=== PATIENT | female | born 1975 | race Caucasian/White ===

== ENCOUNTER 2017-04-26 08:47 | Day surgery (SDC) | payer MEDICAID ==
[2015-04-01 11:10] VITALS: BMI 60.6
--- NOTE | ~2017-04-26 | PRO ---
PATIENT:GISSEL SCHILLING MEDICAL RECORD: [id number] : 79 [facility] ADMISSION DATE: 04/26/17 PROCEDURE PERFORMED BY: JOSE L CHAN DO PROCEDURE DATE: 04/26/17 PROCEDURE: Colonoscopy with biopsies and stool collection. INDICATION FOR PROCEDURE: Diarrhea as well as nausea and vomiting. SCOPE: uSpeak video pediatric colonoscope. MEDICATIONS: Propofol 320 milligrams IV per anesthesia. ESTIMATED BLOOD LOSS: Minimal. COMPLICATIONS: None. FINDINGS: Informed consent was given. The patient was made comfortable with the above medication. After reaching an adequate level of sedation by slow IV push, the patient was placed on her left side. A digital rectal examination was performed and was normal. The endoscope was then advanced under direct visualization through the rectum to the terminal ileum. The scope was slowly withdrawn, and mucosa was carefully examined. The prep quality was poor to fair. Stool was collected during the examination to submit for further studies including culture, fecal leukocytes, ova and parasites, and C-difficile. Random biopsies were taken throughout the colon to rule out microscopic colitis. There were no polyps, diverticula, or signs of colitis visualized throughout the entire colon. Retroflexion was performed in the rectum with the normal view. The endoscope was withdrawn from the patient. The patient tolerated the procedure well, and there were no complications. IMPRESSIONS: 1. Normal colonoscopy to the terminal ileum. 2. Diarrhea and change in bowel habits. PLAN/RECOMMENDATIONS: 1. Discharge home when recovery parameters are met. 2. High fiber diet. 3. Continue current medications. 4. Trial of cholestyramine 4 gm b.i.d. to the bulk stool. 5. Follow-up biopsy specimen results with further recommendations pending findings on biopsies, cultures, and stool studies. JOSE L CHAN DO CC: [id number] DICTATION DATE: 04/26/171940 SUPERVISOR DUMPING: TC 04/26/171939 [facility] 04/26/17 [facility] [address] [place] [address]
[2017-04-26] MEDS ORDERED: BUMEX2 MG PO (10:28)
[2017-04-26] MEDS ORDERED: KLONOPIN1 MG PO (10:29)
[2017-04-26] MEDS ORDERED: REMERON30 MG PO (10:29)
[2017-04-26] MEDS ORDERED: TOPAMAX100 MG PO (10:29)
[2017-04-26] MEDS ORDERED: LEVOXYL100 MCG PO (10:30)
[2017-04-26] MEDS ORDERED: ZOLOFT100 MG PO (10:30)
[2017-04-26] MEDS ORDERED: VITAMIN D5000 UNIT (10:31)
[2017-04-26] MEDS ORDERED: VITAMIN D5000 UNIT PO (10:32)
[2017-04-26] MEDS ORDERED: LANTUS INSULIN10 ML SC (10:33)
[2017-04-26 10:48] LABS: HEMOGLOBIN 13.2 g/dL (12-16); MCH 27.6 pg (26.0-34.0); MCHC 32.2 g/dL (31.0-37.0); MCV 85.8 fL (80.0-100.0); MEAN PLATELET VOLUME 9.7 fL (7.4-10.4); RBC 4.78 10x6/uL (4.00-5.40); RDW 13.9 % (11.5-14.5); WBC 9.4 10x3/uL (4.8-10.8)
[2017-04-26 11:10] LABS: ANION GAP 13.5 mmol/L (8-16); CALCIUM 8.6 mg/dL (8.5-10.1); CARBON DIOXIDE 24.4 mmol/L (21.0-32.0); CREATININE - SERUM 0.9 mg/dL (0.6-1.3); POTASSIUM - SERUM 3.9 mmol/L (3.5-5.1)
--- NOTE | 2017-04-26 14:06 | NUR ---
1240- PT BACK TO ROOM. SITTING UP WITH HOB ELEVATED. VSS. AT BEDSIDE. DR. CHAN SPOKE ABOUT PROCEDURAL FINDINGS. 1310- FULL LIQUIDS TOLERATED. 1325- IV D/C'D, CATHETER INTACT. 1330- DISCHARGE INSTRUCTIONS COMPLETED, PT VERBALIZED UNDERSTANDING. PAPERWORK SIGNED. 1335- PT DISCHARGED VIA WHEELCHAIR WITH .
== END 2017-04-26 13:35 | disposition home or self-care (01) ==
LOC: D.OPS 08:47
PROVIDERS: Anesthesiology; Internal Medicine Gastroenterology
DX: R19.7 Diarrhea, unspecified (principal); Z01.812 Encounter for preprocedural laboratory examination

== ENCOUNTER 2017-05-03 08:36 | Day surgery (SDC) | payer MEDICAID ==
[2017-04-26 10:39] VITALS: BP 138/85; BMI 57.5
[~2017-05-03] VITALS: Ht 177.8 cm; Wt 181.8 kg
[~2017-05-03 08:36] MED LIST: BUMEX2 MG PO; KLONOPIN1 MG PO; LANTUS INSULIN10 ML SC; LEVOXYL100 MCG PO; REMERON30 MG PO; TOPAMAX100 MG PO; VITAMIN D5000 UNIT; VITAMIN D5000 UNIT PO; ZOLOFT100 MG PO
[2017-05-03 09:30] LABS: BASOPHILS 0.5 % (0-2); EOSINOPHILS 4.2 % (0-7); HEMATOCRIT 41.2 % (36.0-48.0); HEMOGLOBIN 13.1 g/dL (12-16); IMMATURE GRANULOCYTES 1.8 % (0-5); LYMPHOCYTES 30.7 % (15-50); MCH 27.4 pg (26.0-34.0); MCHC 31.8 g/dL (31.0-37.0); MCV 86.2 fL (80.0-100.0); MEAN PLATELET VOLUME 9.6 fL (7.4-10.4); MONOCYTES 4.8 % (2-11); PLATELET COUNT 200 10x3/uL (130-400); RBC 4.78 10x6/uL (4.00-5.40); RDW 13.9 % (11.5-14.5)
[2017-05-03 09:33] VITALS: BP 155/66; Ht 177.8 cm; Wt 181.8 kg
[2017-05-03 09:41] LABS: CALC OSMOLALITY 285 mosm/kg (275-300); CALCIUM 8.8 mg/dL (8.5-10.1); CHLORIDE - SERUM 107 mmol/L (98-107); CREATININE - SERUM 0.8 mg/dL (0.6-1.3); GLUCOSE 171 mg/dL (74-106); POTASSIUM - SERUM 3.9 mmol/L (3.5-5.1); SODIUM 142 mmol/L (136-145); UREA NITROGEN 9 mg/dL (7-18); eGFR NON AFRICAN AMERICAN 84 mL/min (90-120)
--- NOTE | 2017-05-03 11:42 | NUR ---
DC TEACHING COMPLETE VU
--- NOTE | 2017-05-05 16:52 | OP ---
PATIENT NAME: GISSEL SCHILLING MEDICAL RECORD: [id number] :79 LOCATION:D[facility] ADMISSION DATE: SURGEON: JOSE L CHAN DO OPERATION DATE: 05/03/17 PROCEDURE: Esophagogastroduodenoscopy with biopsies. INDICATION: Change in bowels, diarrhea, heart burn, nausea. SCOPE: Olympus video gastroscope. MEDICATIONS: Propofol 300 milligrams IV per anesthesia. ESTIMATED BLOOD LOSS: Minimal. COMPLICATIONS: None. FINDINGS: Informed consent was given. The patient was made comfortable with the above medication. After reaching an adequate level of sedation by slow IV push, the patient was placed on her left side. The endoscope was then advanced under direct visualization through the mouth to the second portion of the duodenum. The upper, middle, and distal thirds of the esophagus appeared normal. At the gastroesophageal junction there was some mild evidence of mild LA class B reflux induced esophagitis. The endoscope was advanced beyond the gastroesophageal junction into the stomach and retroflexed to view the cardia and fundus. There was a small sliding hiatal hernia present. The endoscope was advanced into the body and antrum of the stomach where there was granularity and erythema consistent with possible gastritis. Random biopsies were taken to submit for histology and to rule out Helicobacter-pylori. The endoscope was advanced beyond the pylorus into the duodenum where there was some erythema and nodularity consistent with duodenitis. The second portion of the duodenum appeared normal other than a significant amount of bile. Random biopsies were taken from the bulb and second portion of the duodenum to submit for histology. The endoscope was then withdrawn from the patient. The patient tolerated the procedure well. There were no complications. IMPRESSIONS: 1. LA class B reflux induced esophagitis at the gastroesophageal junction. 2. Small sliding hiatal hernia. 3. Erythema and granularity of the stomach and bulb of the duodenum consistent with gastritis and duodenitis. Random biopsies have been taken. PLAN/RECOMMENDATIONS: 1. Discharge home when recovery parameters are met. 2. Continue current diet. 3. Continue current medications. 4. Okay to use as needed Zantac for heart burn symptoms. I would recommend 150 milligrams daily to twice a day. 5. Notify the clinic if symptoms do not improve with as needed medications or worsen. 6. Follow up biopsy specimen results. 7. As dictated after the colonoscopy, recommend trial of cholestyramine regarding the diarrhea which could be bile induced diarrhea status post cholecystectomy. 8. Consider probiotics [id number] to reestablish manjula status post antibiotic therapy for Helicobacter-pylori treatment. OPERATIVE REPORT [id number] GISSEL SCHILLING NATHAN A DO at 1652 CC: [id number] DICTATION DATE: 05/03/17 1100 FOREIGN SERVICE TEACHER: DM 05/03/17 1321 [facility] 05/03/17 [id number] [place] [address]
== END 2017-05-03 12:00 | disposition home or self-care (01) ==
LOC: D.OPS 08:36
PROVIDERS: Anesthesiology
DX: K29.70 Gastritis, unspecified, without bleeding (principal); K21.0 Gastro-esophageal reflux disease with esophagitis; K44.9 Diaphragmatic hernia without obstruction or gangrene; Z01.812 Encounter for preprocedural laboratory examination